=== PATIENT | female | born 1995 | race Hispanic/Latino ===

== ENCOUNTER 2018-05-31 06:30 | Day surgery (SDC) | payer MEDICAID, OTHER ==
[2018-05-27 14:12] VITALS: BP 111/71
[2018-05-27 14:12] LABS: BASOPHILS % (AUTO) 0.2 % (0.0-5.0); EOSINOPHILS % (AUTO) 1.8 % (0.0-8.0); HEMATOCRIT 37.7 % (36-48); LYMPHOCYTES % (AUTO) 14.4 % (21.0-51.0); MEAN CORPUSCULAR HEMOGLOBIN 29.4 pg (27.0-33.0); MONOCYTES % (AUTO) 7.1 % (3.0-13.0); NEUTROPHILS % (AUTO) 76.5 % (40.0-77.0); NUCLEATED RED BLOOD CELLS 0.1 % (0.0-0.19); PLATELET COUNT (AUTO) 193 K/uL (130-400); RED BLOOD CELL COUNT(AUTO) 4.24 MIL/uL (4.00-5.50); RED CELL DISTRIBUTION WIDTH 14.4 % (11.0-15.5); WHITE BLOOD COUNT (AUTO) 8.9 K/uL (4.8-10.8)
[2018-05-27 14:18] LABS: APPEARANCE,URINE Cloudy (CLEAR); BILIRUBIN,URINE Negative (NEGATIVE); COLOR,URINE Yellow (YELLOW); GLUCOSE, URINE (UA) Negative (NEGATIVE); KETONES,URINE Trace mg/dL (NEGATIVE); LEUKOCYTE ESTERASE ,URINE Moderate (NEGATIVE); NITRATE,URINE Negative (NEGATIVE); OCCULT BLOOD,URINE Negative (NEGATIVE); PROTEIN,URINE Trace (NEGATIVE)
[2018-05-27 14:27] LABS: ALBUMIN 3.9 g/dL (3.5-5.0); BILIRUBIN,DIRECT 0.1 mg/dL (0.0-0.3); BILIRUBIN,TOTAL 0.3 mg/dL (0.2-1.0); TOTAL PROTEIN, SERUM 8.1 g/dL (6.0-8.3)
[2018-05-27 14:45] LABS: BACTERIA,URINE Few /HPF (None Seen); RBC,URINE None Seen /HPF (0-1)
--- NOTE | 2018-05-30 15:58 | NUR ---
ABNORMAL LABS URINALYSIS RESULTS FAXED EARLIER TO DR. CORTES'S OFFICE. PER [facility], THEY DID RECEIVE THE FAX, PENDING FOR REVIEW BY .
--- NOTE | 2018-05-30 16:47 | NUR ---
PT PT ON PHONE. STATES SHE WAS PRESCRIBED TAMIFLU AND LEVOFLOXACIN YESTERDAY DUE TO A DIFFERENT STRAND OF FLU. SHE DID NOTIFY DR. CORTES. STATES HE TALKED TO HER PCP. PER DR. CORTES PT CAN PROCEED WITH PENDING SURGERY.
[~2018-05-31] VITALS: Ht 162.6 cm; Wt 75.4 kg
[2018-05-31] VITALS (15 sets, daily range): BP systolic 100–123; BP diastolic 38–78
[2018-05-31] MEDS ORDERED: LACTATED RINGERS 1000ML 1,000 ML IV ONE (06:42)
[2018-05-31] MEDS ORDERED: LEVO500T2 PO (07:10)
[2018-05-31] MEDS ORDERED: MIDAZOLAM HCL 1 MG/ML 2ML VIAL ONE (07:11)
[2018-05-31] MEDS ORDERED: PROPOFOL 10 MG/ML 20ML VIAL IV ONE (07:11)
[2018-05-31] MEDS ORDERED: LIDOCAINE PF 2% 5ML ABBOJECT ONE (07:11)
[2018-05-31] MEDS ORDERED: OSEL75 PO (07:11)
[2018-05-31] MEDS ORDERED: SUCCINYLCHOLINE 200MG/10ML SYR ONE (07:11)
[2018-05-31] MEDS ORDERED: ONDANSETRON HCL 4 MG/2 ML VIAL ONE (07:11)
[2018-05-31] MEDS ORDERED: ROCURONIUM 10MG/1ML SYR 10 MG/ML ML ONE (07:12)
[2018-05-31] MEDS ORDERED: FENTANYL CITRATE PF 50 MCG/1 ML 2ML VIAL ONE (07:12)
[2018-05-31] MEDS ORDERED: FAMOTIDINE/PF 20 MG/2 ML VIAL IV ONE (07:15)
[2018-05-31] MEDS ORDERED: MEPERIDINE-PF 25 MG/ML SYG ONE ×2 (07:16→09:57)
[2018-05-31] MEDS ORDERED: NEOSTIGMINE 5MG/5ML SYR IV ONE (09:14)
[2018-05-31] MEDS ORDERED: GLYCOPYRROLATE 1 MG/5 ML SYRINGE ONE (09:14)
[2018-05-31] MEDS ORDERED: KETOROLAC TROMETHAMINE 30MG/ML ONE (09:47)
== END 2018-05-31 11:30 | disposition home or self-care (01) ==
LOC: DAH 06:30
PROVIDERS: ATTEND Surgery
DX: K80.10 Calculus of gallbladder with chronic cholecystitis without obstruction (principal); E66.3 Overweight; Z88.0 Allergy status to penicillin
CPT/HCPCS: 36415; 47562; 80076; 81001; 84703; 85025; 88304; A4450; C1769 ×4; J0330; J1885; J2001; J2175 ×2; J2250; J2405; J2704; J2710; J3010; J3490 ×2; J7030; J7120 ×2